=== PATIENT | male | born 1985 | race Caucasian/White ===

== ENCOUNTER 2017-03-31 10:22 | Emergency (ER) | payer MEDICAID ==
[~2017-03-31] VITALS: Ht 180.3 cm; Wt 80.0 kg
[~2017-03-31 10:22] MED LIST: ACET500L PO; METH40TA PO; ZOFR4TAB3 SL
[2017-03-31 10:25] VITALS: BP 140/98; PULSE 90; RESP 16; TEMP 98.9; O2SAT 98
[2017-03-31] MEDS ORDERED: SUMAtriptan INJ 6 MG/0.5 ML VIAL SQ PRN (11:00)
[2017-03-31] MEDS ORDERED: SUMAtriptan SUCCINATE 50 MG TAB PO ONE (11:00)
[2017-03-31] MEDS ORDERED: ONDANSETRON ODT 4 MG TAB PO ONE (11:00)
[2017-03-31] MEDS ORDERED: traMADol HCL 50 MG TAB PO ONE ×2 (11:00→12:00)
[2017-03-31 11:01] VITALS: BP 150/86; PULSE 83; RESP 18; O2SAT 98
--- NOTE | 2017-03-31 11:17 | PD ---
HPI Chief Complaint: Headache Time Seen by Provider: 10:46 Travel History International Travel<30 days: No Contact w/Intl Traveler<30days: No Traveled to known affect area: No History of Present Illness HPI Patient presents with a persistent headache for 3 days. States is localized in the occipital region and around his eyes. Reports a history of migraines. Denies any nausea or vomiting. Mild photophobia. Denies aura. Normally takes Excedrin Migraine. States he got no relief from this. Denies any new chest pain shortness of breath urinary or bowel symptoms. PFSH Past Medical History Medical History: Denies Significant Hx Hx Anticoagulant Therapy: No Diabetes: No Immunizations Current: Yes Past Surgical History Other Surgery: Yes (FULL MOUTH TOOTH EXTRACTIONS) Social History Alcohol Use: No Tobacco Use: No Substance Use: No Allergies-Medications (Allergen,Severity, Reaction): Coded Allergies: Codeine (Verified Allergy, Severe, Nausea/Vomiting, 03/31/17) Reported Meds & Prescriptions Reported Meds & Active Scripts Active Acetaminophen Extra Strength Liq (Acetaminophen) 500 Mg/15 Ml Soln 500 Mg PO Q6HR PRN 5 Days Zofran Odt (Ondansetron Odt) 4 Mg Tab 4 Mg SL Q6HR PRN Reported Methadone (Methadone HCl) 40 Mg Tab 80 Mg PO DAILY Review of Systems General / Constitutional: No: Fever Eyes: No: Visual changes HENT: Positive: Headaches Cardiovascular: No: Chest Pain or Discomfort Respiratory: No: Shortness of Breath Gastrointestinal: No: Abdominal Pain Genitourinary: No: Dysuria Musculoskeletal: No: Pain Skin: No Rash Neurologic: No: Weakness Psychiatric: No: Depression Endocrine: No: Polydipsia Hematologic/Lymphatic: No: Easy Bruising Physical Exam Narrative GENERAL: Well-nourished, well-developed patient. SKIN: Focused skin assessment warm/dry. HEAD: Normocephalic. EYES: No scleral icterus. No injection or drainage. NECK: Supple, trachea midline. No JVD or lymphadenopathy. CARDIOVASCULAR: Regular rate and rhythm without murmurs, gallops, or rubs. RESPIRATORY: Breath sounds equal bilaterally. No accessory muscle use. GASTROINTESTINAL: Abdomen soft, non-tender, nondistended. MUSCULOSKELETAL: No cyanosis, or edema. BACK: Nontender without obvious deformity. No CVA tenderness. Data Data Last Documented VS Vital Signs Date Time Temp Pulse Resp B/P Pulse Ox O2 Delivery O2 Flow Rate FiO2 03/31/17 12:14 85 18 172/88 99 Room Air 03/31/17 10:25 98.9 Orders Sumatriptan Inj (Imitrex Inj) (03/31/17 11:00) Ondansetron Odt (Zofran Odt) (03/31/17 11:00) Tramadol (Ultram) (03/31/17 11:00) Sumatriptan Succinate (Imitrex) (03/31/17 11:00) Tramadol (Ultram) (03/31/17 12:00) MDM Medical Decision Making Medical Screen Exam Complete: Yes Emergency Medical Condition: Yes Differential Diagnosis Tension headache, cluster headache, migraine, cervical degenerative disc disease Narrative Course Assessment and plan discussed with patient and at bedside. Medications provided with resolution of headache. Diagnosis Primary Impression: Cephalgia Qualified Code: R51 - Acute nonintractable headache, unspecified headache type Patient Instructions: General Instructions Additional Instructions: Rest fluids and Motrin. Follow-up with PCP. Return to emergency room with any onset of new symptoms. Med/Other Pt SpecificInfo: Prescription(s) given Scripts Ymaqnyspca-Fjpdutlvszltw-Kyuqerte (Fioricet)50-300-40 Mg Cap1 Cap PO Q4H PRN ( HEADACHE) #20 CAP Ref 0 Prov:Stefano Sultana MD 03/31/17 Disposition: 01 DISCHARGE HOME Condition: Good Stefano Sultana MD Mar 31, 2017 11:16
[2017-03-31 12:14] VITALS: BP 172/88; PULSE 85; RESP 18; O2SAT 99
[2017-03-31] MEDS ORDERED: BUTA1CAP PO (12:30)
== END 2017-03-31 12:42 | disposition home or self-care (01) ==
LOC: PHED 10:22
DX: R51 Headache (principal); Z86.69 Personal history of other diseases of the nervous system and sense organs
CPT/HCPCS: 99283

== ENCOUNTER 2017-04-03 08:02 | Emergency (ER) | payer MEDICAID ==
[~2017-04-03] VITALS: Ht 180.3 cm; Wt 80.0 kg
[~2017-04-03 08:02] MED LIST changes: +BUTA1CAP PO
[2017-04-03 08:11] VITALS: BP 115/72; PULSE 93; RESP 16; TEMP 99.5; O2SAT 98
== END 2017-04-03 08:40 | disposition left against medical advice (07) ==
LOC: PHED 08:02
DX: R50.9 Fever, unspecified (principal)
CPT/HCPCS: 99281

== ENCOUNTER 2017-12-25 03:27 | Emergency (ER) | payer MEDICAID ==
[~2017-12-25] VITALS: Ht 180.3 cm; Wt 85.9 kg
[2017-12-25 03:31] VITALS: BP 156/82; PULSE 100; RESP 18; TEMP 98.4; O2SAT 99
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
== END 2017-12-25 04:11 | disposition home or self-care (01) ==
LOC: PHED 03:27
DX: Z48.02 Encounter for removal of sutures (principal)
CPT/HCPCS: 99281